=== PATIENT | female | born 1975 | race African-American/Black ===

== ENCOUNTER 2018-07-09 22:35 | Inpatient (IN) | payer OTHER, MEDICAID ==
[~2018-07-09] VITALS: Ht 165.1 cm; Wt 144.2 kg
[2018-07-10] VITALS (58 sets, daily range): BP systolic 104–159; BP diastolic 46–104
[2018-07-10] MEDS ORDERED: ALBUTEROL (0.5%) 2.5MG/0.5ML NEB HHN ONE
[2018-07-10] MEDS ORDERED: ASPIRIN 81MG TABLET PO ONE (00:15)
[2018-07-10] MEDS ORDERED: FUROSEMIDE 40MG/4ML VIAL IV ONE (00:15)
[2018-07-10] MEDS ORDERED: NITROGLYCERIN OINT 1GM/INCH UDPKT TD ONE (00:15)
[2018-07-10 01:50] LABS: CHLORIDE 97 mEq/L (98-107)
[2018-07-10 01:52] LABS: INR 1.3; PARTIAL THROMBOPLASTIN TIME 25.4 sec (23.4-31.0); PROTHROMBIN TIME 12.8 sec (9.1-11.1)
[2018-07-10 02:00] LABS: HCG SCREEN NEGATIVE
[2018-07-10 02:11] LABS: HEMATOCRIT. 50.6 % (36.0-48.0); HEMOGLOBIN. 16.3 g/dL (12.0-16.0); MEAN CORPUSCULAR VOLUME 96.2 fL (81.0-99.0); RED BLOOD CELL COUNT 5.26 mill/uL (4.2-5.4); RED CELL DISTRIBUTION WIDTH 16.3 % (11.6-14.6)
[2018-07-10] MEDS ORDERED: SODIUM BICARBONATE 8.4% 1 MEQ/ML 50ML SYR IV ONE (02:15)
[2018-07-10] MEDS ORDERED: SODIUM POLYSTYRENE SULFONATE 15 G/60 ML BOT PO ONE (02:15)
[2018-07-10 02:43] LABS: MEAN PLATELET VOLUME 9.4 fl (7.4-10.4); PLATELET 192 x1000/uL (130-400)
[2018-07-10 03:05] LABS: ATYPICAL LYMPHOCYTES 2; NUCLEATED RED BLOOD CELLS 1 /100 WBC
[2018-07-10 03:07] LABS: PLATELET ESTIMATE NORMAL
[2018-07-10] MEDS ORDERED: ENOXAPARIN 150MG/ML SYR SUBCUT ONE (03:15)
[2018-07-10] MEDS ORDERED: IPRATROPIUM/ALBUTEROL 0.5-3(2.5)MG/3ML NEB HHN PRN (06:45)
[2018-07-10 07:53] LABS: BG BASE EXCESS 16.3 mmol/L (-2.0-2.0); BG CARBOXYHEMOGLOBIN 2.5 % (0.5-1.5); BG DEOXYHEMOGLOBIN 6.9 % (0.0-5.0); BG FRACTION INSPIRED OXYGEN 36; BG HCO3 ACT 50.3 mmol/L (22.0-26.0); BG METHEMOGLOBIN 0.4 % (0.0-1.5); BG OXYGEN SATURATION 92.9 % (92.0-98.5); BG OXYHEMOGLOBIN 90.2 % (94.0-97.0); BG PCO2 115.3 mmHg (35.0-45.0); BG PH 7.258 (7.350-7.450); BG PO2 77.4 mmHg (75.0-100.0); BG SAMPLE SITE RIGHT RADIAL; BG TOTAL HEMOGLOBIN 16.4 g/dL (12.0-18.0); BG VENT MODE NASAL CANNULA
[2018-07-10] MEDS: ASPIRIN 81MG TABLET PO SCH (09:00)
[2018-07-10] MEDS ORDERED: FUROSEMIDE 40MG/4ML VIAL IVP SCH (09:30)
[2018-07-10] MEDS ORDERED: METHYLPREDNISOLONE SOD SUCC 125 MG/2 ML VIAL IV SCH (09:30)
[2018-07-10] MEDS: FUROSEMIDE 40MG/4ML VIAL IVP SCH ×3 (10:14→17:35)
[2018-07-10] MEDS: AMLODIPINE 10MG TABLET PO SCH (10:30)
[2018-07-10 11:18] LABS: BG BASE EXCESS 17.5 mmol/L (-2.0-2.0); BG DEOXYHEMOGLOBIN 9.7 % (0.0-5.0); BG FRACTION INSPIRED OXYGEN 36; BG HCO3 ACT 52.7 mmol/L (22.0-26.0); BG METHEMOGLOBIN 0.5 % (0.0-1.5); BG OXYGEN SATURATION 89.9 % (92.0-98.5); BG OXYHEMOGLOBIN 86.8 % (94.0-97.0); BG PCO2 125.2 mmHg (35.0-45.0); BG PH 7.242 (7.350-7.450); BG PO2 65.9 mmHg (75.0-100.0); BG SAMPLE SITE RIGHT RADIAL; BG TOTAL HEMOGLOBIN 16.8 g/dL (12.0-18.0); BG VENT MODE NASAL CANNULA
[2018-07-10 12:28] LABS: AMMONIA 52 uMol/L (<32)
[2018-07-10 12:50] LABS: HEPATITIS B SURFACE ANTIGEN NEGATIVE
[2018-07-10 13:09] LABS: CLARITY URINE CLEAR (CLEAR); COLOR URINE YELLOW (YELLOW); KETONES URINE NEGATIVE (NEGATIVE); LEUKOCYTE ESTERASE URINE NEGATIVE (NEGATIVE); NITRITE URINE NEGATIVE (NEGATIVE); OCCULT BLOOD URINE 1+ (NEGATIVE); PROTEIN URINE NEGATIVE (NEGATIVE); SPECIFIC GRAVITY URINE 1.006 (1.005-1.030); UROBILINOGEN URINE 0.2 E.U./dL (0.2-1.0)
[2018-07-10 13:20] LABS: HEPATITIS A AB IGM NEGATIVE (NEGATIVE)
[2018-07-10 13:29] LABS: *AMPHETAMINES SCREEN URINE NEGATIVE (NEGATIVE); *BARBITURATES SCREEN URINE NEGATIVE (NEGATIVE); *BENZODIAZEPINES SCREEN URINE NEGATIVE (NEGATIVE); *COCAINE SCREEN URINE NEGATIVE (NEGATIVE); METHADONE URINE SCREEN NEGATIVE (NEGATIVE); OPIATES URINE SCREEN NEGATIVE (NEGATIVE); PHENCYCLIDINE URINE SCREEN NEGATIVE (NEGATIVE)
[2018-07-10] MEDS ORDERED: CLONIDINE 0.2MG TABLET PO PRN ×2 (13:45)
[2018-07-10 14:02] LABS: CANNABINOID URINE SCREEN PRESUMTIVE POSITIVE (NEGATIVE)
[2018-07-10 14:09] LABS: HEPATITIS B CORE AB IGM REACTIVE
[2018-07-10] MEDS ORDERED: LIDOCAINE HCL/PF 1% 2ML VIAL ONE (14:42)
[2018-07-10] MEDS: IPRATROPIUM/ALBUTEROL 0.5-3(2.5)MG/3ML NEB HHN SCH ×2 (16:42→19:59)
[2018-07-10] MEDS: NICOTINE 21MG PATCH TD SCH (17:27)
[2018-07-10 18:11] LABS: CREATINE KINASE MB FRACTION 1.7 ng/mL (0.5-3.6)
[2018-07-10] MEDS: BUDESONIDE 0.5MG/2ML NEB HHN SCH (19:59)
[2018-07-11] VITALS (28 sets, daily range): BP systolic 86–127; BP diastolic 27–77
[2018-07-11] MEDS: IPRATROPIUM/ALBUTEROL 0.5-3(2.5)MG/3ML NEB HHN SCH ×7 (00:04→23:52)
[2018-07-11 05:54] LABS: BASOPHILS % 0.1 % (0.0-2.0); HEMATOCRIT. 48.3 % (36.0-48.0); HEMOGLOBIN. 15.3 g/dL (12.0-16.0); LYMPHOCYTES % 7.9 % (20.0-50.0); MEAN CORPUSCULAR HEMOGLOBIN 30.5 pg (28.0-32.0); MEAN PLATELET VOLUME 9.3 fl (7.4-10.4); MONOCYTES % 7.9 % (2.0-8.0); NEUTROPHILS % 84.1 % (40.0-76.0); PLATELET 220 x1000/uL (130-400); RED BLOOD CELL COUNT 5.03 mill/uL (4.2-5.4); RED CELL DISTRIBUTION WIDTH 16.5 % (11.6-14.6)
[2018-07-11 05:56] LABS: CHLORIDE 89 mEq/L (98-107)
[2018-07-11 06:06] LABS: CREATINE KINASE 42 IU/L (26-192); CREATINE KINASE MB FRACTION < 1.0 ng/mL (0.5-3.6)
[2018-07-11 07:09] LABS: BG BASE EXCESS 23.5 mmol/L (-2.0-2.0); BG BILEVEL POS AIRWAY PRESSURE 15/5; BG DEOXYHEMOGLOBIN 2.5 % (0.0-5.0); BG HCO3 ACT 55.7 mmol/L (22.0-26.0); BG METHEMOGLOBIN 0.4 % (0.0-1.5); BG OXYGEN SATURATION 97.5 % (92.0-98.5); BG OXYHEMOGLOBIN 96.1 % (94.0-97.0); BG PCO2 96.4 mmHg (35.0-45.0); BG PO2 102.5 mmHg (75.0-100.0); BG SAMPLE SITE RIGHT RADIAL; BG VENT MODE MASK - BIPAP; BG VENT RATE 18 set
[2018-07-11] MEDS: BUDESONIDE 0.5MG/2ML NEB HHN SCH ×2 (08:40→20:22)
[2018-07-11] MEDS: NICOTINE 21MG PATCH TD SCH (09:03)
[2018-07-11] MEDS: ASPIRIN 81MG TABLET PO SCH (09:03)
[2018-07-11] MEDS: FUROSEMIDE 40MG/4ML VIAL IVP SCH ×2 (09:03→18:41)
[2018-07-11] MEDS: AMLODIPINE 10MG TABLET PO SCH (09:03)
[2018-07-11] MEDS: ENOXAPARIN 40MG/0.4ML SYR SUBCUT SCH ×2 (11:39→20:39)
[2018-07-11 14:22] LABS: BG BASE EXCESS 19.3 mmol/L (-2.0-2.0); BG BILEVEL POS AIRWAY PRESSURE ST=15/5; BG DEOXYHEMOGLOBIN 6.2 % (0.0-5.0); BG FRACTION INSPIRED OXYGEN 70; BG HCO3 ACT 49.3 mmol/L (22.0-26.0); BG METHEMOGLOBIN 0.4 % (0.0-1.5); BG OXYGEN SATURATION 93.7 % (92.0-98.5); BG OXYHEMOGLOBIN 92.4 % (94.0-97.0); BG PCO2 79.4 mmHg (35.0-45.0); BG PH 7.411 (7.350-7.450); BG PO2 70.9 mmHg (75.0-100.0); BG PRESSURE SUPPORT 10; BG SAMPLE SITE RIGHT RADIAL; BG VENT MODE MASK - BIPAP; BG VENT RATE 18 set
[2018-07-11 22:47] LABS: CHLORIDE 86 mEq/L (98-107)
[2018-07-11] MEDS: POTASSIUM CHLORIDE 20MEQ TABLET SR PO SCH (23:45)
[2018-07-12] VITALS (25 sets, daily range): BP systolic 90–169; BP diastolic 54–99
[2018-07-12] MEDS: IPRATROPIUM/ALBUTEROL 0.5-3(2.5)MG/3ML NEB HHN SCH ×6 (04:24→23:53)
[2018-07-12] MEDS: GABAPENTIN 100MG CAPSULE PO SCH ×3 (05:27→22:14)
[2018-07-12 05:52] LABS: BASOPHILS % 0.4 % (0.0-2.0); EOSINOPHILS % 0.7 % (0.0-5.0); HEMATOCRIT. 49.1 % (36.0-48.0); HEMOGLOBIN. 15.5 g/dL (12.0-16.0); LYMPHOCYTES % 19.9 % (20.0-50.0); MEAN CORPUSCULAR VOLUME 95.4 fL (81.0-99.0); MEAN PLATELET VOLUME 9.3 fl (7.4-10.4); MONOCYTES % 8.4 % (2.0-8.0); NEUTROPHILS % 70.6 % (40.0-76.0); PLATELET 195 x1000/uL (130-400); RED BLOOD CELL COUNT 5.15 mill/uL (4.2-5.4); RED CELL DISTRIBUTION WIDTH 16.8 % (11.6-14.6)
[2018-07-12 06:16] LABS: CHLORIDE 87 mEq/L (98-107)
[2018-07-12 06:22] LABS: PHOSPHORUS 3.1 mg/dL (2.5-4.9)
[2018-07-12 08:06] LABS: BG BASE EXCESS 17.6 mmol/L (-2.0-2.0); BG BILEVEL POS AIRWAY PRESSURE 15/5; BG CARBOXYHEMOGLOBIN 0.5 % (0.5-1.5); BG DEOXYHEMOGLOBIN 7.2 % (0.0-5.0); BG HCO3 ACT 46.2 mmol/L (22.0-26.0); BG METHEMOGLOBIN 0.2 % (0.0-1.5); BG OXYGEN SATURATION 92.7 % (92.0-98.5); BG OXYHEMOGLOBIN 92.1 % (94.0-97.0); BG PCO2 68.8 mmHg (35.0-45.0); BG PH 7.445 (7.350-7.450); BG PO2 65.3 mmHg (75.0-100.0); BG SAMPLE SITE RIGHT RADIAL; BG TOTAL HEMOGLOBIN 16.3 g/dL (12.0-18.0); BG VENT MODE MASK - BIPAP; BG VENT RATE 18 set
[2018-07-12] MEDS: FUROSEMIDE 40MG/4ML VIAL IVP SCH ×2 (08:08→16:58)
[2018-07-12] MEDS: POTASSIUM CHLORIDE 20MEQ TABLET SR PO SCH (08:08)
[2018-07-12] MEDS: ASPIRIN 81MG EC TABLET PO SCH (08:08)
[2018-07-12] MEDS: ENOXAPARIN 40MG/0.4ML SYR SUBCUT SCH ×2 (08:14→22:14)
[2018-07-12] MEDS: AMLODIPINE 10MG TABLET PO SCH (08:15)
[2018-07-12] MEDS: NICOTINE 21MG PATCH TD SCH (08:15)
[2018-07-12] MEDS: BUDESONIDE 0.5MG/2ML NEB HHN SCH ×2 (08:31→19:56)
[2018-07-12] MEDS ORDERED: LIDOCAINE HCL/PF 1% 2ML VIAL ONE (15:03)
[2018-07-13] VITALS (20 sets, daily range): BP systolic 102–128; BP diastolic 56–81
[2018-07-13] MEDS: IPRATROPIUM/ALBUTEROL 0.5-3(2.5)MG/3ML NEB HHN SCH ×4 (04:06→16:09)
[2018-07-13] MEDS: GABAPENTIN 100MG CAPSULE PO SCH ×3 (05:16→21:33)
[2018-07-13] MEDS: BUDESONIDE 0.5MG/2ML NEB HHN SCH (08:20)
[2018-07-13] MEDS: FUROSEMIDE 40MG/4ML VIAL IVP SCH ×2 (08:33→16:10)
[2018-07-13] MEDS: POTASSIUM CHLORIDE 20MEQ TABLET SR PO SCH (08:33)
[2018-07-13] MEDS: ASPIRIN 81MG EC TABLET PO SCH (08:33)
[2018-07-13] MEDS: AMLODIPINE 10MG TABLET PO SCH (08:33)
[2018-07-13] MEDS: NICOTINE 21MG PATCH TD SCH (08:35)
[2018-07-13] MEDS: ENOXAPARIN 40MG/0.4ML SYR SUBCUT SCH ×2 (08:35→21:34)
[2018-07-13 09:04] LABS: BG BASE EXCESS 15.8 mmol/L (-2.0-2.0); BG BILEVEL POS AIRWAY PRESSURE 15/5; BG CARBOXYHEMOGLOBIN 0.7 % (0.5-1.5); BG FRACTION INSPIRED OXYGEN 65; BG HCO3 ACT 45.1 mmol/L (22.0-26.0); BG METHEMOGLOBIN 0.2 % (0.0-1.5); BG OXYHEMOGLOBIN 95.1 % (94.0-97.0); BG PCO2 72.3 mmHg (35.0-45.0); BG PH 7.413 (7.350-7.450); BG PO2 84.3 mmHg (75.0-100.0); BG SAMPLE SITE RIGHT RADIAL; BG TOTAL HEMOGLOBIN 16.9 g/dL (12.0-18.0); BG VENT MODE MASK - BIPAP
[2018-07-13] MEDS ORDERED: LIDOCAINE HCL/PF 1% 2ML VIAL ONE ×2 (10:10→14:59)
[2018-07-13 11:34] LABS: BG BASE EXCESS 15.7 mmol/L (-2.0-2.0); BG CARBOXYHEMOGLOBIN 1.1 % (0.5-1.5); BG DEOXYHEMOGLOBIN 10.9 % (0.0-5.0); BG FRACTION INSPIRED OXYGEN 32; BG HCO3 ACT 43.9 mmol/L (22.0-26.0); BG METHEMOGLOBIN 0.4 % (0.0-1.5); BG OXYGEN SATURATION 88.9 % (92.0-98.5); BG OXYHEMOGLOBIN 87.6 % (94.0-97.0); BG PH 7.447 (7.350-7.450); BG PO2 56.8 mmHg (75.0-100.0); BG SAMPLE SITE RIGHT RADIAL; BG VENT MODE NASAL CANNULA
[2018-07-14] VITALS (12 sets, daily range): BP systolic 98–146; BP diastolic 59–85
[2018-07-14] MEDS: IPRATROPIUM/ALBUTEROL 0.5-3(2.5)MG/3ML NEB HHN SCH ×6 (01:01→21:27)
[2018-07-14 06:08] LABS: BASOPHILS % 0.6 % (0.0-2.0); EOSINOPHILS % 1.8 % (0.0-5.0); HEMATOCRIT. 52.4 % (36.0-48.0); HEMOGLOBIN. 16.7 g/dL (12.0-16.0); LYMPHOCYTES % 15.6 % (20.0-50.0); MEAN CORPUSCULAR HEMOGLOBIN 30.3 pg (28.0-32.0); MEAN CORPUSCULAR VOLUME 95.3 fL (81.0-99.0); MEAN PLATELET VOLUME 8.9 fl (7.4-10.4); MONOCYTES % 9.3 % (2.0-8.0); NEUTROPHILS % 72.7 % (40.0-76.0); PLATELET 189 x1000/uL (130-400); RED CELL DISTRIBUTION WIDTH 16.8 % (11.6-14.6)
[2018-07-14] MEDS: GABAPENTIN 100MG CAPSULE PO SCH ×3 (06:11→20:53)
[2018-07-14] MEDS: OMEPRAZOLE 20MG CAPSULE EXTENDED RELEASE PO SCH (06:11)
[2018-07-14] MEDS: BUDESONIDE 0.5MG/2ML NEB HHN SCH ×2 (07:29→21:27)
[2018-07-14 08:23] LABS: CHLORIDE 95 mEq/L (98-107)
[2018-07-14] MEDS: ENOXAPARIN 40MG/0.4ML SYR SUBCUT SCH ×2 (09:55→20:52)
[2018-07-14] MEDS: FUROSEMIDE 40MG/4ML VIAL IVP SCH ×2 (09:55→16:32)
[2018-07-14] MEDS: NICOTINE 21MG PATCH TD SCH (09:55)
[2018-07-14] MEDS: AMLODIPINE 10MG TABLET PO SCH (09:55)
[2018-07-14] MEDS: ASPIRIN 81MG EC TABLET PO SCH (09:56)
[2018-07-14] MEDS: POTASSIUM CHLORIDE 20MEQ TABLET SR PO SCH (09:56)
[2018-07-14] MEDS ORDERED: LIDOCAINE HCL/PF 1% 2ML VIAL ONE (10:21)
[2018-07-14 11:59] LABS: BG BASE EXCESS 10.1 mmol/L (-2.0-2.0); BG CARBOXYHEMOGLOBIN 1.4 % (0.5-1.5); BG DEOXYHEMOGLOBIN 6.9 % (0.0-5.0); BG FRACTION INSPIRED OXYGEN 40; BG HCO3 ACT 37.8 mmol/L (22.0-26.0); BG METHEMOGLOBIN 0.6 % (0.0-1.5); BG OXYHEMOGLOBIN 91.1 % (94.0-97.0); BG PCO2 60.8 mmHg (35.0-45.0); BG PH 7.412 (7.350-7.450); BG PO2 67.2 mmHg (75.0-100.0); BG SAMPLE SITE LEFT RADIAL; BG VENT MODE MASK - VENTI
[2018-07-14] MEDS ORDERED: POTASSIUM CHLORIDE 20MEQ/PACKET PO NR (12:15)
[2018-07-14] MEDS ORDERED: MAGNESIUM 1 G PREMIX 100 ML IV NR (13:30)
[2018-07-15] VITALS (12 sets, daily range): BP systolic 103–147; BP diastolic 37–94
[2018-07-15] MEDS: IPRATROPIUM/ALBUTEROL 0.5-3(2.5)MG/3ML NEB HHN SCH ×6 (01:17→20:34)
[2018-07-15] MEDS: OMEPRAZOLE 20MG CAPSULE EXTENDED RELEASE PO SCH (06:05)
[2018-07-15] MEDS: GABAPENTIN 100MG CAPSULE PO SCH ×3 (06:05→21:52)
[2018-07-15 07:20] LABS: BASOPHILS % 0.8 % (0.0-2.0); HEMATOCRIT. 52.1 % (36.0-48.0); HEMOGLOBIN. 16.7 g/dL (12.0-16.0); MEAN CORPUSCULAR HEMOGLOBIN 30.5 pg (28.0-32.0); MEAN CORPUSCULAR VOLUME 95.3 fL (81.0-99.0); MEAN PLATELET VOLUME 8.7 fl (7.4-10.4); MONOCYTES % 10.7 % (2.0-8.0); NEUTROPHILS % 65.5 % (40.0-76.0); PLATELET 193 x1000/uL (130-400); RED BLOOD CELL COUNT 5.47 mill/uL (4.2-5.4); RED CELL DISTRIBUTION WIDTH 17.1 % (11.6-14.6)
[2018-07-15] MEDS: BUDESONIDE 0.5MG/2ML NEB HHN SCH ×2 (08:03→20:34)
[2018-07-15] MEDS: ENOXAPARIN 40MG/0.4ML SYR SUBCUT SCH ×2 (08:04→21:51)
[2018-07-15] MEDS: ASPIRIN 81MG EC TABLET PO SCH (08:04)
[2018-07-15] MEDS: NICOTINE 21MG PATCH TD SCH (08:04)
[2018-07-15] MEDS: POTASSIUM CHLORIDE 20MEQ TABLET SR PO SCH (08:04)
[2018-07-15] MEDS: AMLODIPINE 10MG TABLET PO SCH ×3 (08:05→21:51)
[2018-07-15 11:04] LABS: CHLORIDE 96 mEq/L (98-107)
[2018-07-15] MEDS: SILDENAFIL CITRATE 20MG TABLET PO SCH (21:52)
[2018-07-16] VITALS (12 sets, daily range): BP systolic 98–129; BP diastolic 26–84
[2018-07-16] MEDS: IPRATROPIUM/ALBUTEROL 0.5-3(2.5)MG/3ML NEB HHN SCH ×6 (00:27→19:59)
[2018-07-16] MEDS: GABAPENTIN 100MG CAPSULE PO SCH ×3 (06:02→21:12)
[2018-07-16] MEDS: OMEPRAZOLE 20MG CAPSULE EXTENDED RELEASE PO SCH (06:02)
[2018-07-16] MEDS: SILDENAFIL CITRATE 20MG TABLET PO SCH ×3 (06:02→21:13)
[2018-07-16] MEDS: NICOTINE 21MG PATCH TD SCH (08:25)
[2018-07-16] MEDS: ENOXAPARIN 40MG/0.4ML SYR SUBCUT SCH ×2 (08:25→21:13)
[2018-07-16] MEDS: ASPIRIN 81MG EC TABLET PO SCH (08:26)
[2018-07-16] MEDS: POTASSIUM CHLORIDE 20MEQ TABLET SR PO SCH (08:26)
[2018-07-16] MEDS: AMLODIPINE 10MG TABLET PO SCH ×2 (08:29→21:00)
[2018-07-16] MEDS: BUDESONIDE 0.5MG/2ML NEB HHN SCH ×2 (09:03→19:59)
[2018-07-16 11:55] LABS: BG BASE EXCESS 5.7 mmol/L (-2.0-2.0); BG CARBOXYHEMOGLOBIN 0.8 % (0.5-1.5); BG DEOXYHEMOGLOBIN 7.5 % (0.0-5.0); BG FRACTION INSPIRED OXYGEN 32; BG HCO3 ACT 32.6 mmol/L (22.0-26.0); BG METHEMOGLOBIN 0.5 % (0.0-1.5); BG OXYGEN SATURATION 92.4 % (92.0-98.5); BG OXYHEMOGLOBIN 91.2 % (94.0-97.0); BG PCO2 55.2 mmHg (35.0-45.0); BG PH 7.389 (7.350-7.450); BG PO2 65.1 mmHg (75.0-100.0); BG SAMPLE SITE RIGHT RADIAL; BG VENT MODE NASAL CANNULA
[2018-07-16] MEDS ORDERED: LIDOCAINE HCL/PF 1% 2ML VIAL ONE (15:19)
[2018-07-17] VITALS (10 sets, daily range): BP systolic 92–150; BP diastolic 42–77
[2018-07-17] MEDS: IPRATROPIUM/ALBUTEROL 0.5-3(2.5)MG/3ML NEB HHN SCH ×5 (00:03→15:00)
[2018-07-17] MEDS: GABAPENTIN 100MG CAPSULE PO SCH (06:15)
[2018-07-17] MEDS: OMEPRAZOLE 20MG CAPSULE EXTENDED RELEASE PO SCH (06:15)
[2018-07-17] MEDS: SILDENAFIL CITRATE 20MG TABLET PO SCH (06:15)
[2018-07-17] MEDS: BUDESONIDE 0.5MG/2ML NEB HHN SCH (07:20)
[2018-07-17] MEDS: AMLODIPINE 10MG TABLET PO SCH (08:53)
[2018-07-17] MEDS: POTASSIUM CHLORIDE 20MEQ TABLET SR PO SCH (09:05)
[2018-07-17] MEDS: NICOTINE 21MG PATCH TD SCH (09:05)
[2018-07-17] MEDS: ASPIRIN 81MG EC TABLET PO SCH (09:05)
[2018-07-17] MEDS: ENOXAPARIN 40MG/0.4ML SYR SUBCUT SCH (09:06)
[2018-07-18] MEDS ORDERED: AMLODIPINE 5MG TABLET PO SCH (06:00)
== END 2018-07-17 17:00 | disposition home or self-care (01) | DRG 194 ==
LOC: ER 22:35 → 6WST 07-10 02:46 → EDBEDREQSVC 07-10 03:15 → EDBEDREQ 07-10 03:15 → EDBEDREQTM 07-10 03:17 → EDBEDREQSVC 07-10 03:17 → EDBEDREQ 07-10 03:17 → ENRESERV 07-10 03:48 → 5EST 07-10 07:53 → MICUSO 07-10 09:28 → 3WST 07-13 17:00
PROVIDERS: ADMIT Internal Medicine Nephrology; ATTEND Internal Medicine Nephrology
PROC: 02HV33Z Insertion of Infusion Device into Superior Vena Cava, Percutaneous Approach (ICD-10-PCS; principal; 2018-07-10)
PROC: B548ZZA Ultrasonography of Superior Vena Cava, Guidance (ICD-10-PCS; 2018-07-10)
PROC: 5A09357 Assistance with Respiratory Ventilation, Less than 24 Consecutive Hours, Continuous Positive Airway Pressure (ICD-10-PCS; 2018-07-10)
PROC: 5A09457 Assistance with Respiratory Ventilation, 24-96 Consecutive Hours, Continuous Positive Airway Pressure (ICD-10-PCS; 2018-07-11)
PROC: 5A09357 Assistance with Respiratory Ventilation, Less than 24 Consecutive Hours, Continuous Positive Airway Pressure (ICD-10-PCS; 2018-07-12)
PROC: 5A09357 Assistance with Respiratory Ventilation, Less than 24 Consecutive Hours, Continuous Positive Airway Pressure (ICD-10-PCS; 2018-07-16)
DX: I11.0 Hypertensive heart disease with heart failure (principal); J96.22 Acute and chronic respiratory failure with hypercapnia; E43 Unspecified severe protein-calorie malnutrition; D75.1 Secondary polycythemia; I27.20 Pulmonary hypertension, unspecified; E66.2 Morbid (severe) obesity with alveolar hypoventilation; E83.42 Hypomagnesemia; E87.5 Hyperkalemia; I50.43 Acute on chronic combined systolic (congestive) and diastolic (congestive) heart failure; J44.1 Chronic obstructive pulmonary disease with (acute) exacerbation; R79.89 Other specified abnormal findings of blood chemistry; D72.829 Elevated white blood cell count, unspecified; R74.0 Nonspecific elevation of levels of transaminase and lactic acid dehydrogenase [LDH]; E11.9 Type 2 diabetes mellitus without complications; E87.6 Hypokalemia; R16.0 Hepatomegaly, not elsewhere classified; F17.210 Nicotine dependence, cigarettes, uncomplicated; F12.10 Cannabis abuse, uncomplicated; E87.8 Other disorders of electrolyte and fluid balance, not elsewhere classified; D64.9 Anemia, unspecified; Z60.2 Problems related to living alone; M79.661 Pain in right lower leg; Z53.20 Procedure and treatment not carried out because of patient's decision for unspecified reasons; Z99.81 Dependence on supplemental oxygen; Z68.43 Body mass index [BMI] 50.0-59.9, adult
CPT/HCPCS: 36415; 36569; 36600; 71045; 76700; 76937; 80048; 80061; 80305; 82140; 82375; 82550; 82553; 82805; 83735; 83880; 84100; 84443; 84484; 84703; 85379; 86705; 86709; 86803; 87340; 93005; 93306; 93970; 94640; 94660; 96372; 96374; 96375; 97110; 97116; 97162; 99285; A6261; C1725; C1893; J1650; J1940; J2930; J3475; J3490; J7040; J7050; J7611; J7620; J7626; A4315